=== PATIENT | male | born 1955 | race Asian ===

== ENCOUNTER 2022-03-14 08:27 | Outpatient (CLI) | payer BC ==
[2022-03-14 10:08] LABS: Anion Gap 16 mmol/L (10-20); BUN (Urea Nitrogen) 18 mg/dL (8.4-25.7); Calc. Creatinine Clearance 0 mL/min (70-130); Calcium 9.3 mg/dL (7.8-10.44); Carbon Dioxide 27 mmol/L (23-31); Chloride 103 mmol/L (98-107); Glucose 105 mg/dL (80-115); Potassium 4.6 mmol/L (3.5-5.1); Sodium 141 mmol/L (136-145)
== END 2022-03-14 08:28 | disposition home or self-care (01) ==
LOC: CSHLAB 08:27
PROVIDERS: ATTEND Surgery
DX: Z01.818 Encounter for other preprocedural examination (principal); K40.91 Unilateral inguinal hernia, without obstruction or gangrene, recurrent; K40.90 Unilateral inguinal hernia, without obstruction or gangrene, not specified as recurrent
CPT/HCPCS: 80048; 93005; 93010

== ENCOUNTER 2022-03-16 10:06 | Day surgery (SDC) | payer BC ==
[2022-03-13 14:39] VITALS: BMI 22.4
[~2022-03-16 10:06] MED LIST: Bupivacaine PF 0.5% 30 ML VIAL ONE; EPINEPHrine 1 MG/ML AMP ONE
[2022-03-16] MEDS ORDERED: Lidocaine 1% MPF 2 ML VIAL ONE (10:43)
[2022-03-16] MEDS ORDERED: PROPOFOL 20 ML ONE (11:30)
[2022-03-16] MEDS ORDERED: Fentanyl 100 MCG/2 ML VIAL ONE ×3 (11:30→13:05)
[2022-03-16] MEDS ORDERED: Midazolam HCl 2 mg/2 ml Vial ONE (11:30)
[2022-03-16] MEDS ORDERED: Lidocaine 1% PF 5 ML VIAL ONE (11:32)
[2022-03-16] MEDS ORDERED: Rocuronium Bromide 10 MG/ML (10ML VIAL) ONE (11:32)
[2022-03-16] MEDS ORDERED: CEFAZOLIN 1 GM VIAL ONE (11:36)
[2022-03-16] MEDS ORDERED: traMADol HCl 50 MG TAB PO PRN (11:47)
[2022-03-16] MEDS ORDERED: Acetaminophen 325 MG TAB PO PRN (11:47)
[2022-03-16] MEDS ORDERED: ePHEDrine Sulfate 50 MG/10 ML VIAL ONE (12:46)
[2022-03-16] MEDS ORDERED: Glycopyrrolate 0.2 MG/ML 5 ML SYRINGE ONE (12:53)
== END 2022-03-16 14:19 | disposition home or self-care (01) ==
LOC: CSHSDC 10:06
PROVIDERS: ATTEND Surgery
PROC: 0YU54JZ Supplement Right Inguinal Region with Synthetic Substitute, Percutaneous Endoscopic Approach (ICD-10-PCS; principal; 2022-03-16)
PROC: 0YU64JZ Supplement Left Inguinal Region with Synthetic Substitute, Percutaneous Endoscopic Approach (ICD-10-PCS; principal; 2022-03-16)
DX: K40.91 Unilateral inguinal hernia, without obstruction or gangrene, recurrent (principal); K40.90 Unilateral inguinal hernia, without obstruction or gangrene, not specified as recurrent; G47.30 Sleep apnea, unspecified; K21.9 Gastro-esophageal reflux disease without esophagitis; E78.00 Pure hypercholesterolemia, unspecified; I25.10 Atherosclerotic heart disease of native coronary artery without angina pectoris; I10 Essential (primary) hypertension; Z79.82 Long term (current) use of aspirin; Z79.84 Long term (current) use of oral hypoglycemic drugs; Z91.018 Allergy to other foods; Z79.899 Other long term (current) drug therapy; Z95.5 Presence of coronary angioplasty implant and graft; Z87.891 Personal history of nicotine dependence
CPT/HCPCS: C1713; J0171; J0690; J2250; J2704; J3010; S0020

== ENCOUNTER 2022-03-24 10:45 | Inpatient (IN) | payer BC ==
[2022-03-24] MEDS ORDERED: Acetaminophen 500 MG TAB ONE (12:19)
[2022-03-24 12:21] LABS: Bilirubin Neg (Negative); Blood, Urine 50 (Negative); Clarity Clear (Clear); Glucose, Urine (Dipstick) Normal (Negative); Ketone, Urine Negative (Negative); Leukocyte 500 (Negative); Nitrite Positive (Negative); Protein, Urine (Dipstick) Negative (Neg-Trace); Specific Gravity, Urine 1.015 (1.002-1.036); Urobilinogen Normal mg/dL (Less than 2)
[2022-03-24 12:23] LABS: #Monocytes 0.7 10x3/uL (0.0-1.1); #Neutrophils 16.9 10x3/uL (1.5-8.4); %Basophils 0.2 % (0.0-2.0); %Eosinophils 0.1 % (0.0-6.0); %Lymphocytes 3.8 % (18.0-47.0); %Monocytes 3.9 % (0.0-10.0); %Neutrophils 91.5 % (40.0-75.0); Bacteria/HPF 2+ HPF (None Seen); Hemoglobin 11.9 g/dL (13.5-17.5); Mean Corpuscular HGB CONC 34.4 g/dL (32.0-36.0); Mean Corpuscular Hemoglobin 28.7 pg (27.0-33.0); Mean Corpuscular Volume 83.4 fl (81.2-95.1); Mean Platelet Volume 10.8 fl (7.4-10.4); Platelet Count 172 10x3/uL (150-450); RBC Distribution Width 14.4 % (11.5-14.5); Red Blood Cell (RBC) Count 4.15 10x6/uL (4.32-5.72); White Blood Cell (WBC) Count 18.5 10x3/uL (3.5-10.5)
[2022-03-24 12:38] LABS: ALT (SGPT) 16 U/L (8-55); AST (SGOT) 16 U/L (5-34); Albumin 4.1 g/dL (3.4-4.8); Alkaline Phosphatase 52 U/L (40-110); Anion Gap 18 mmol/L (10-20); BUN (Urea Nitrogen) 32 mg/dL (8.4-25.7); Bilirubin, Total 0.8 mg/dL (0.2-1.2); Calc. Creatinine Clearance 0 mL/min (70-130); Calcium 9.6 mg/dL (7.8-10.44); Carbon Dioxide 26 mmol/L (23-31); Chloride 95 mmol/L (98-107); Estimated GFR 44; Glucose 116 mg/dL (80-115); Potassium 4.2 mmol/L (3.5-5.1); Protein, Total 7.1 g/dL (5.8-8.1); Sodium 135 mmol/L (136-145)
[2022-03-24] MEDS ORDERED: cefTRIAXone\\ROCEPHIN 2 GM VIAL ONE (12:49)
[2022-03-24] MEDS ORDERED: Ondansetron PF 4 MG/2 ML Vial IVP PRN (13:33)
[2022-03-24 16:28] VITALS: BMI 22.9
[2022-03-24] MEDS: Sodium Chloride 0.9% 1,000 ML IV SCH (17:16)
[2022-03-24 20:56] LABS: SARS-CoV-2 NAA Rapid Test DETECTED (NotDetected)
[2022-03-24] MEDS: Tamsulosin HCl 0.4 MG CAP PO SCH (21:25)
[2022-03-25] MEDS: Acetaminophen 325 MG TAB PO PRN ×2 (00:05→21:03)
[2022-03-25] MEDS: Sodium Chloride 0.9% 1,000 ML IV SCH ×3 (04:38→16:07)
[2022-03-25 05:26] LABS: #Eosinphils 0.1 10x3/uL (0.0-0.5); #Monocytes 0.4 10x3/uL (0.0-1.1); #Neutrophils 9.5 10x3/uL (1.5-8.4); %Basophils 0.2 % (0.0-2.0); %Eosinophils 0.6 % (0.0-6.0); %Lymphocytes 7.7 % (18.0-47.0); %Monocytes 3.7 % (0.0-10.0); %Neutrophils 86.9 % (40.0-75.0); Hemoglobin 10.8 g/dL (13.5-17.5); Mean Corpuscular HGB CONC 32.9 g/dL (32.0-36.0); Mean Corpuscular Hemoglobin 27.8 pg (27.0-33.0); Mean Corpuscular Volume 84.3 fl (81.2-95.1); Mean Platelet Volume 11.3 fl (7.4-10.4); Platelet Count 148 10x3/uL (150-450); RBC Distribution Width 14.1 % (11.5-14.5); Red Blood Cell (RBC) Count 3.89 10x6/uL (4.32-5.72); White Blood Cell (WBC) Count 10.9 10x3/uL (3.5-10.5)
[2022-03-25 05:39] LABS: Anion Gap 17 mmol/L (10-20); BUN (Urea Nitrogen) 23 mg/dL (8.4-25.7); Calc. Creatinine Clearance 65 mL/min (70-130); Calcium 8.4 mg/dL (7.8-10.44); Carbon Dioxide 24 mmol/L (23-31); Chloride 101 mmol/L (98-107); Estimated GFR 71; Glucose 101 mg/dL (80-115); Potassium 3.5 mmol/L (3.5-5.1); Sodium 138 mmol/L (136-145)
[2022-03-25] MEDS ORDERED: Spironolactone 25 MG TAB PO SCH (08:30)
[2022-03-25] MEDS: Carvedilol 6.25 MG TAB PO SCH ×2 (08:55→21:04)
[2022-03-25] MEDS: Senokot S 8.6-50 MG TAB PO SCH ×2 (08:56→21:05)
[2022-03-25] MEDS: Enoxaparin Sodium 40 MG/0.4 ML SYRINGE SC SCH (08:58)
[2022-03-25] MEDS: hydrALAZINE 20 MG/ML VIAL SLOW IVP PRN ×2 (08:59→13:35)
[2022-03-25] MEDS ORDERED: Hydrochlorothiazide 25 MG TAB PO SCH (09:00)
[2022-03-25] MEDS ORDERED: Losartan Potassium 50 MG TAB PO SCH (09:00)
[2022-03-25 12:31] LABS: Hemoglobin A1c 5.7 % (4.0-6.0)
[2022-03-25] MEDS ORDERED: cefTRIAXone\\ROCEPHIN 2 GM in Sodium Chloride 0.9% 100 ML IVPB SCH (14:00)
[2022-03-25] MEDS ORDERED: cefTRIAXone\\ROCEPHIN 1 GM in Sodium Chloride 0.9% 100 ML IVPB SCH (14:00)
[2022-03-25] MEDS: Atorvastatin Calcium 20 MG TAB PO SCH (21:03)
[2022-03-25] MEDS: Tamsulosin HCl 0.4 MG CAP PO SCH (21:05)
[2022-03-25] MEDS: Aspirin 81 mg Enteric Coated Tablet PO SCH (21:05)
[2022-03-25] MEDS: Spironolactone 25 MG TAB PO SCH (21:05)
[2022-03-26 05:27] LABS: #Eosinphils 0.1 10x3/uL (0.0-0.5); #Monocytes 0.4 10x3/uL (0.0-1.1); #Neutrophils 4.9 10x3/uL (1.5-8.4); %Basophils 0.7 % (0.0-2.0); %Eosinophils 1.5 % (0.0-6.0); %Lymphocytes 10.8 % (18.0-47.0); %Monocytes 6.2 % (0.0-10.0); %Neutrophils 79.7 % (40.0-75.0); Hemoglobin 11.4 g/dL (13.5-17.5); Mean Corpuscular HGB CONC 33.2 g/dL (32.0-36.0); Mean Corpuscular Hemoglobin 27.9 pg (27.0-33.0); Mean Corpuscular Volume 84.1 fl (81.2-95.1); Mean Platelet Volume 11.1 fl (7.4-10.4); Platelet Count 145 10x3/uL (150-450); Red Blood Cell (RBC) Count 4.08 10x6/uL (4.32-5.72); White Blood Cell (WBC) Count 6.1 10x3/uL (3.5-10.5)
[2022-03-26 05:38] LABS: ALT (SGPT) 21 U/L (8-55); AST (SGOT) 19 U/L (5-34); Alkaline Phosphatase 43 U/L (40-110); Anion Gap 16 mmol/L (10-20); BUN (Urea Nitrogen) 16 mg/dL (8.4-25.7); Bilirubin, Direct 0.2 mg/dL (0.1-0.3); Bilirubin, Total 0.4 mg/dL (0.2-1.2); CRP (Inflammatory) 10.01 mg/dL (= or < 0.5); Calc. Creatinine Clearance 75 mL/min (70-130); Calcium 8.4 mg/dL (7.8-10.44); Carbon Dioxide 24 mmol/L (23-31); Cardiac Risk 4.6 (Less than 4.5); Chloride 101 mmol/L (98-107); Cholesterol 102 mg/dl (< 200 Desired); Estimated GFR 83; Glucose 97 mg/dL (80-115); HDL Cholesterol 22 mg/dL (>60 Neg Risk); LDL Cholesterol, Calculated 48 mg/dL; Magnesium 1.3 mg/dL (1.6-2.6); Potassium 3.1 mmol/L (3.5-5.1); Protein, Total 5.6 g/dL (5.8-8.1); Sodium 138 mmol/L (136-145); Triglycerides 160 mg/dL (Less than 150)
[2022-03-26] MEDS ORDERED: Potassium Chloride 20 MEQ TAB PO SCH (06:30)
[2022-03-26] MEDS ORDERED: Magnesium 2 GM/50 ML(in water) 4 GM in Premix Bag 1 BAG IVPB SCH (06:30)
[2022-03-26] MEDS: Senokot S 8.6-50 MG TAB PO SCH ×2 (09:17→22:02)
[2022-03-26] MEDS: Enoxaparin Sodium 40 MG/0.4 ML SYRINGE SC SCH (09:17)
[2022-03-26] MEDS: Carvedilol 6.25 MG TAB PO SCH ×2 (09:17→22:00)
[2022-03-26] MEDS: IRBESARTAN PO SCH (09:20)
[2022-03-26] MEDS: HYDROCHLOROTHIAZIDE PO SCH (09:20)
[2022-03-26] MEDS: Sodium Chloride 0.9% 1,000 ML IV SCH (13:31)
[2022-03-26] MEDS: Acetaminophen 325 MG TAB PO PRN (13:38)
[2022-03-26] MEDS ORDERED: Meropenem 1 GM in Sodium Chloride 0.9% 100 ML IVPB SCH (14:00)
[2022-03-26] MEDS: hydrALAZINE 20 MG/ML VIAL SLOW IVP PRN (14:41)
[2022-03-26] MEDS: Spironolactone 25 MG TAB PO SCH (22:00)
[2022-03-26] MEDS: Atorvastatin Calcium 20 MG TAB PO SCH (22:00)
[2022-03-26] MEDS: Aspirin 81 mg Enteric Coated Tablet PO SCH (22:02)
[2022-03-26] MEDS: Tamsulosin HCl 0.4 MG CAP PO SCH (22:02)
[2022-03-26] MEDS: Meropenem 1 GM in Sodium Chloride 0.9% 100 ML IVPB SCH (22:03)
[2022-03-27] MEDS: Acetaminophen 325 MG TAB PO PRN (01:39)
[2022-03-27 04:21] LABS: #Eosinphils 0.2 10x3/uL (0.0-0.5); #Monocytes 0.4 10x3/uL (0.0-1.1); #Neutrophils 3.5 10x3/uL (1.5-8.4); %Basophils 0.6 % (0.0-2.0); %Eosinophils 3.1 % (0.0-6.0); %Lymphocytes 19.1 % (18.0-47.0); %Monocytes 8.5 % (0.0-10.0); %Neutrophils 67.7 % (40.0-75.0); Hemoglobin 11.5 g/dL (13.5-17.5); Mean Corpuscular HGB CONC 33.9 g/dL (32.0-36.0); Mean Corpuscular Hemoglobin 28.1 pg (27.0-33.0); Mean Corpuscular Volume 82.9 fl (81.2-95.1); Mean Platelet Volume 11.6 fl (7.4-10.4); Platelet Count 172 10x3/uL (150-450); RBC Distribution Width 13.5 % (11.5-14.5); Red Blood Cell (RBC) Count 4.09 10x6/uL (4.32-5.72); White Blood Cell (WBC) Count 5.2 10x3/uL (3.5-10.5)
[2022-03-27 04:45] LABS: Anion Gap 14 mmol/L (10-20); BUN (Urea Nitrogen) 16 mg/dL (8.4-25.7); Calc. Creatinine Clearance 87 mL/min (70-130); Calcium 8.3 mg/dL (7.8-10.44); Carbon Dioxide 27 mmol/L (23-31); Chloride 102 mmol/L (98-107); Estimated GFR 96; Glucose 115 mg/dL (80-115); Magnesium 1.4 mg/dL (1.6-2.6); Potassium 3.5 mmol/L (3.5-5.1); Sodium 139 mmol/L (136-145)
[2022-03-27] MEDS: hydrALAZINE 20 MG/ML VIAL SLOW IVP PRN (04:58)
[2022-03-27] MEDS: Magnesium 2 GM/50 ML(in water) 2 GM in Premix Bag 1 BAG IVPB SCH ×2 (06:45→09:03)
[2022-03-27] MEDS: Meropenem 1 GM in Sodium Chloride 0.9% 100 ML IVPB SCH (06:45)
[2022-03-27] MEDS: HYDROCHLOROTHIAZIDE PO SCH (09:00)
[2022-03-27] MEDS: IRBESARTAN PO SCH (09:00)
[2022-03-27] MEDS ORDERED: hydrALAZINE 25 MG TAB PO SCH ×2 (09:00→15:00)
[2022-03-27] MEDS: Senokot S 8.6-50 MG TAB PO SCH ×2 (09:01→21:38)
[2022-03-27] MEDS: Carvedilol 6.25 MG TAB PO SCH (09:01)
[2022-03-27] MEDS: Magnesium Oxide 400 MG TAB PO SCH (09:01)
[2022-03-27] MEDS: metFORMIN 500 MG TAB PO SCH ×2 (09:02→17:28)
[2022-03-27] MEDS: Enoxaparin Sodium 40 MG/0.4 ML SYRINGE SC SCH (09:03)
[2022-03-27] MEDS: Sulfameth/Trimethoprim DS 800-160mg TAB PO SCH ×2 (15:10→21:37)
[2022-03-27] MEDS: Carvedilol 12.5 MG TAB PO SCH (17:28)
[2022-03-27] MEDS: Sodium Chloride 0.9% 1,000 ML IV SCH (18:33)
[2022-03-27] MEDS: Aspirin 81 mg Enteric Coated Tablet PO SCH (21:37)
[2022-03-27] MEDS: Tamsulosin HCl 0.4 MG CAP PO SCH (21:37)
[2022-03-27] MEDS: Atorvastatin Calcium 20 MG TAB PO SCH (21:37)
[2022-03-28] MEDS: hydrALAZINE 20 MG/ML VIAL SLOW IVP PRN (00:45)
[2022-03-28] MEDS ORDERED: diphenhydrAMINE 25 MG CAP PO PRN (01:18)
[2022-03-28 03:26] LABS: #Eosinphils 0.3 10x3/uL (0.0-0.5); #Monocytes 0.5 10x3/uL (0.0-1.1); #Neutrophils 4.8 10x3/uL (1.5-8.4); %Basophils 0.4 % (0.0-2.0); %Eosinophils 3.8 % (0.0-6.0); %Lymphocytes 20.5 % (18.0-47.0); %Monocytes 7.1 % (0.0-10.0); %Neutrophils 67.8 % (40.0-75.0); Hemoglobin 11.7 g/dL (13.5-17.5); Mean Corpuscular HGB CONC 33.9 g/dL (32.0-36.0); Mean Corpuscular Hemoglobin 28.1 pg (27.0-33.0); Mean Corpuscular Volume 82.9 fl (81.2-95.1); Mean Platelet Volume 10.9 fl (7.4-10.4); Platelet Count 191 10x3/uL (150-450); RBC Distribution Width 13.8 % (11.5-14.5); Red Blood Cell (RBC) Count 4.16 10x6/uL (4.32-5.72); White Blood Cell (WBC) Count 7.1 10x3/uL (3.5-10.5)
[2022-03-28 04:16] LABS: Anion Gap 16 mmol/L (10-20); BUN (Urea Nitrogen) 16 mg/dL (8.4-25.7); Calc. Creatinine Clearance 93 mL/min (70-130); Calcium 8.7 mg/dL (7.8-10.44); Carbon Dioxide 22 mmol/L (23-31); Chloride 102 mmol/L (98-107); Estimated GFR 98; Glucose 108 mg/dL (80-115); Magnesium 1.5 mg/dL (1.6-2.6); Potassium 3.5 mmol/L (3.5-5.1); Sodium 136 mmol/L (136-145)
[2022-03-28] MEDS ORDERED: hydrALAZINE 20 MG/ML VIAL SLOW IVP PRN (06:22)
[2022-03-28] MEDS ORDERED: Magnesium 2 GM/50 ML(in water) 4 GM in Premix Bag 1 BAG IVPB SCH (06:30)
[2022-03-28] MEDS: IRBESARTAN PO SCH (08:38)
[2022-03-28] MEDS: HYDROCHLOROTHIAZIDE PO SCH (08:38)
[2022-03-28] MEDS: Carvedilol 12.5 MG TAB PO SCH (08:39)
[2022-03-28] MEDS: Magnesium Oxide 400 MG TAB PO SCH (08:39)
[2022-03-28] MEDS: metFORMIN 500 MG TAB PO SCH ×2 (08:39→17:48)
[2022-03-28] MEDS: Sulfameth/Trimethoprim DS 800-160mg TAB PO SCH ×3 (08:39→21:09)
[2022-03-28] MEDS: Enoxaparin Sodium 40 MG/0.4 ML SYRINGE SC SCH (08:41)
[2022-03-28] MEDS: Senokot S 8.6-50 MG TAB PO SCH ×2 (08:53→21:09)
[2022-03-28] MEDS ORDERED: Carvedilol 12.5 MG TAB PO SCH (09:30)
[2022-03-28] MEDS: Carvedilol 25 MG TAB PO SCH (17:49)
[2022-03-28] MEDS: Atorvastatin Calcium 20 MG TAB PO SCH (21:09)
[2022-03-28] MEDS: Tamsulosin HCl 0.4 MG CAP PO SCH (21:09)
[2022-03-28] MEDS: Aspirin 81 mg Enteric Coated Tablet PO SCH (21:09)
[2022-03-29 05:34] LABS: Anion Gap 16 mmol/L (10-20); BUN (Urea Nitrogen) 16 mg/dL (8.4-25.7); Calc. Creatinine Clearance 79 mL/min (70-130); Calcium 8.7 mg/dL (7.8-10.44); Carbon Dioxide 23 mmol/L (23-31); Chloride 105 mmol/L (98-107); Estimated GFR 89; Glucose 94 mg/dL (80-115); Iron 66 ug/dL (65-175); Iron Binding Capacity, Total 213 mcg/dL (261-462); Magnesium 1.5 mg/dL (1.6-2.6); Sodium 140 mmol/L (136-145)
[2022-03-29 05:35] LABS: #Basophils 0.1 10x3/uL (0.0-0.2); #Eosinphils 0.4 10x3/uL (0.0-0.5); #Monocytes 0.6 10x3/uL (0.0-1.1); #Neutrophils 5.2 10x3/uL (1.5-8.4); %Basophils 0.7 % (0.0-2.0); %Eosinophils 4.2 % (0.0-6.0); %Monocytes 6.5 % (0.0-10.0); Hemoglobin 11.1 g/dL (13.5-17.5); Mean Corpuscular HGB CONC 33.5 g/dL (32.0-36.0); Mean Corpuscular Hemoglobin 28.2 pg (27.0-33.0); Mean Platelet Volume 11.3 fl (7.4-10.4); Platelet Count 245 10x3/uL (150-450); RBC Distribution Width 13.9 % (11.5-14.5); Red Blood Cell (RBC) Count 3.94 10x6/uL (4.32-5.72); White Blood Cell (WBC) Count 8.4 10x3/uL (3.5-10.5)
[2022-03-29 05:42] LABS: Iron 70 ug/dL (65-175); Iron Binding Capacity, Total 220 mcg/dL (261-462)
[2022-03-29 05:47] LABS: Ferritin 689.33 ng/mL (22-322)
[2022-03-29] MEDS: Magnesium 2 GM/50 ML(in water) 2 GM in Premix Bag 1 BAG IVPB SCH ×2 (09:29→11:31)
[2022-03-29] MEDS: Senokot S 8.6-50 MG TAB PO SCH (09:30)
[2022-03-29] MEDS: Sulfameth/Trimethoprim DS 800-160mg TAB PO SCH (09:30)
[2022-03-29] MEDS: Carvedilol 25 MG TAB PO SCH (09:30)
[2022-03-29] MEDS: Magnesium Oxide 400 MG TAB PO SCH (09:30)
[2022-03-29] MEDS: Enoxaparin Sodium 40 MG/0.4 ML SYRINGE SC SCH ×2 (09:30→09:34)
[2022-03-29] MEDS: metFORMIN 500 MG TAB PO SCH (09:30)
[2022-03-29] MEDS: HYDROCHLOROTHIAZIDE PO SCH (09:33)
[2022-03-29] MEDS: IRBESARTAN PO SCH (09:33)
[2022-03-29] MEDS ORDERED: hydrALAZINE 25 MG TAB PO SCH ×2 (10:00→21:00)
[2022-03-29 11:53] VITALS: BP 126/75; TEMP 98
== END 2022-03-29 13:39 | disposition home or self-care (01) | DRG 871 ==
LOC: CSHERS 10:45 → CSHTELE 14:52
PROVIDERS: ADMIT Family Medicine; ATTEND Family Medicine
PROC: 0T9B70Z Drainage of Bladder with Drainage Device, Via Natural or Artificial Opening (ICD-10-PCS; principal; 2022-03-24)
PROC: 8E0ZXY6 Isolation (ICD-10-PCS; 2022-03-24)
PROC: 3E03329 Introduction of Other Anti-infective into Peripheral Vein, Percutaneous Approach (ICD-10-PCS; 2022-03-24)
DX: A41.51 Sepsis due to Escherichia coli [E. coli] (principal); U07.1 COVID-19; N17.9 Acute kidney failure, unspecified; J90 Pleural effusion, not elsewhere classified; N12 Tubulo-interstitial nephritis, not specified as acute or chronic; I10 Essential (primary) hypertension; E78.5 Hyperlipidemia, unspecified; I25.10 Atherosclerotic heart disease of native coronary artery without angina pectoris; R33.9 Retention of urine, unspecified; I16.0 Hypertensive urgency; E83.42 Hypomagnesemia; Z88.8 Allergy status to other drugs, medicaments and biological substances; Z79.82 Long term (current) use of aspirin; Z79.899 Other long term (current) drug therapy; Z79.84 Long term (current) use of oral hypoglycemic drugs; Z91.018 Allergy to other foods; Z87.891 Personal history of nicotine dependence
CPT/HCPCS: 36415; 51702; 71045; 76770; 80048; 80053; 80061; 80076; 81003; 81015; 82607; 82728; 82746; 83036; 83540; 83550; 83605; 83735; 83880; 84443; 85025; 85046; 86140; 87040; 87077; 87086; 87186; 96365; J0360; J0696; J1650; J2185; J3475; J3490; J7050; U0002; U0003; U0005

== ENCOUNTER 2024-06-18 15:04 | Outpatient (CLI) | payer BC | END 2024-06-18 15:05 | disposition home or self-care (01) | LOC: CSHULT 15:04 | PROVIDERS: ATTEND Family Medicine | DX: N23 Unspecified renal colic (principal); N28.1 Cyst of kidney, acquired | CPT/HCPCS: 76770 ==

== ENCOUNTER 2024-09-01 08:16 | Outpatient (CLI) | payer BC | END 2024-09-01 08:17 | disposition home or self-care (01) | LOC: CSHCT 08:16 | PROVIDERS: ATTEND Urology | DX: N20.0 Calculus of kidney (principal); N28.1 Cyst of kidney, acquired; N40.0 Benign prostatic hyperplasia without lower urinary tract symptoms; K63.9 Disease of intestine, unspecified | CPT/HCPCS: 36415; 74178; 82565 ==